=== PATIENT | female | born 1975 | race Caucasian/White ===

== ENCOUNTER 2021-04-11 01:00 | Emergency (ER) | payer OTHER ==
[~2021-04-11] VITALS: Ht 157.5 cm; Wt 75.3 kg
[2021-04-11] MEDS ORDERED: BACLOFEN 10MG T10 MG PO (01:22)
[2021-04-11] MEDS ORDERED: PROTONIX40 M2 PO (01:22)
[2021-04-11] MEDS ORDERED: LEVO-T100 MCG PO (01:22)
[2021-04-11] MEDS ORDERED: BENTYL 10 MG CA10 M1 PO (01:22)
[2021-04-11] MEDS ORDERED: LITHIUM CARBON300 M3 PO (01:23)
[2021-04-11] MEDS ORDERED: FLEXERIL PO (01:59)
[2021-04-11 02:05] VITALS: BP 112/64
== END 2021-04-11 02:05 | disposition home or self-care (01) ==
LOC: M.ERS 01:00
DX: M62.838 Other muscle spasm (principal); F32.9 Major depressive disorder, single episode, unspecified; K21.9 Gastro-esophageal reflux disease without esophagitis; Z90.49 Acquired absence of other specified parts of digestive tract; Z98.51 Tubal ligation status; Z79.899 Other long term (current) drug therapy; Z88.6 Allergy status to analgesic agent; Z88.0 Allergy status to penicillin; Z91.041 Radiographic dye allergy status; Z88.8 Allergy status to other drugs, medicaments and biological substances; Z88.1 Allergy status to other antibiotic agents